=== PATIENT | male | born 1990 | race Hispanic/Latino ===

== ENCOUNTER 2021-10-11 17:11 | Emergency (ER) | payer SELFPAY ==
--- NOTE | ~2021-10-11 | XR_ITS ---
XR chest 1V portable DATE: 10/11/2021 18:14 INDICATION: Cough for one month. Shortness of breath, fever. TECHNIQUE: Portable upright AP chest on October 11, 2021 at 1810 hours COMPARISON: None FINDINGS: Normal heart size. No hilar or mediastinal enlargement. No pulmonary infiltrate or consolid ation, pleural effusion or pulmonary vascular congestion or pneumothorax. IMPRESSION: No active cardiopulmonary disease Reviewed, dictated and finalized at location A.
[2021-10-11 17:38] VITALS: BP 126/78; PULSE 107; RESP 16; TEMP 37.4; O2SAT 99
[2021-10-11 17:55] VITALS: O2SAT 99
--- NOTE | 2021-10-11 18:06 | ED.URI ---
HPI - URI/Sore Throat General Chief Complaint: Upper Respiratory Infection Stated Complaint: body aches/cough Time Seen by Provider: 10/11/21 17:56 Source: patient Mode of arrival: ambulatory Limitations: no limitations History of Present Illness HPI Narrative: This is a 31-year-old male that presents to the emergency department for cold symptoms present over the last couple of weeks. Reports he had had a cough for the last couple of weeks. Yesterday he started to feel acutely worse. Reports fever, body aches and malaise. Reports he has intermittently seen some blood when he blows his nose. He is not COVID or influenza vaccinated. Denies chest pain or shortness of breath. Related Data Allergies Allergy/AdvReac Type Severity Reaction Status Date / Time No Known Allergies Allergy Verified 10/11/21 18:07 Review of Systems Review of Systems: CONSTITUTIONAL: Reports fever ENT: Reports rhinorrhea, congestion CARDIOVASCULAR: Denies chest pain RESPIRATORY: Reports cough. Denies dyspnea. All systems reviewed & are unremarkable except as noted in HPI and below PMFSH Past Medical History Medical History (Updated 10/11/21 @ 18:33 by Seda Preston PA-C) No active medical problems Social History Social History (Updated 10/11/21 @ 18:08 by Seda Preston PA-C) Substance use: never Exam Narrative: GENERAL: Well-appearing, well-nourished, and in no acute distress. HEAD: Normocephalic, atraumatic. EYES: EOMI. ENT: Nares clear, no rhinorrhea or epistaxis. Mucous membranes moist. Oropharynx without tonsillar hypertrophy exudate or other lesions. Bilateral TMs pearly young non-bulging NECK: Supple. No adenopathy or masses. CHEST: Clear to auscultation. No respiratory distress. No wheezes rales or rhonchi HEART: Regular rate and rhythm. No murmur heard. Normal peripheral pulses. EXTREMITIES: Normal range of motion. No edema. SKIN: Warm, dry, no rash. NEURO: No focal deficits. Alert and oriented x3. PSYCH: Normal mood and affect Course Vital Signs Vital signs: Vital Signs Temperature 99.3 F 10/11/21 17:38 Pulse Rate 107 H 10/11/21 17:38 Respiratory Rate 16 10/11/21 17:38 Blood Pressure 126/78 10/11/21 17:38 Pulse Oximetry 99 10/11/21 17:38 Temperature 99.3 F 10/11/21 17:38 Pulse Rate 107 H 10/11/21 17:38 Respiratory Rate 16 10/11/21 17:38 Blood Pressure 126/78 10/11/21 17:38 Pulse Oximetry 99 10/11/21 17:55 MDM - URI/Sore Throat MDM Narrative Medical decision making narrative: Patient presents to the emergency department for cold symptoms present over the last couple of weeks. He has a febrile and nontoxic-appearing. Mildly tachycardic upon arrival. This normalized without intervention. Oxygen saturation has remained normal on room air. Chest x-ray without acute cardiopulmonary abnormality. Influenza screen is negative. SARS-CoV-2 is pending. He was also reporting some intermittent nosebleeds. No signs or symptoms of bleeding at this time. Patient and family updated on case findings. He was instructed on continued care of viral infection. He is to follow-up with primary care doctor. He was given warnings to return to the ER Lab Data Attestation: I reviewed the patient's lab results. Labs: Lab Results 10/11/21 Range/Units 18:15 SARS-CoV-2 RNA (RT-PCR) Pending Influenza A Screen Negative Reference Range: Negative Influenza B Screen Negative Reference Range: Negative Imaging Data Radiologist's impression: ITS Impressions Chest X-Ray 10/11/21 18:17 IMPRESSION: No active cardiopulmonary disease Critical Care Time Critical Care Time Critical Care Time: No Discharge Plan Discharge Clinical Impression: Acute viral syndrome, Person under investigation for COVID-19 Patient Disposition: Home, Self-Care C
[2021-10-11] MEDS: ACETAMINOPHEN 500 MG TABLET 1000 MG PO (18:12)
[2021-10-11 18:48] VITALS: BP 149/83; PULSE 89; RESP 16; O2SAT 99
[2021-10-11 18:58] LABS: SARS-CoV-2 RNA PCR Negative
== END 2021-10-11 18:49 | disposition home or self-care (01) ==
LOC: ANHED 18:43
PROVIDERS: Physician Assistant; Emergency Provider Emergency Medicine; PCP Emergency Medicine
DX: B34.9 Viral infection, unspecified (principal); Z20.822 Contact with and (suspected) exposure to COVID-19
CPT/HCPCS: 71045; 87804; 99283; A9270; C9803; U0003; U0005

== ENCOUNTER 2022-02-18 22:48 | Emergency (ER) | payer SELFPAY ==
[2022-02-18 23:01] VITALS: BP 132/77; PULSE 76; RESP 18; TEMP 37; O2SAT 100
--- NOTE | 2022-02-19 02:33 | ED.EAR ---
HPI - Ear Problem General Chief complaint: Ear Stated complaint: ear Time Seen by Provider: 02/19/22 02:14 History of Present Illness HPI Narrative: Pt is a 31 y/o male, Sinhala speaking, presents to ED via POV with C/O left ear pain. All information is obtained with the use of gas line repairer via video call. Pt notes he began having left otalgia 5 days ago; for which he was evaluated and prescribed Ciprodex two days ago. He is using the drops as directed but reports the medication does not go into the ear canal and only runs out of the ear when he resumes an upright position. He denies associated fevers or chills. He is taking Ibuprofen for pain with minimal relief. He denies any additional associated symptoms or modifying factors. Related Data Home Medications Medication Instructions Recorded Confirmed ciprofloxacin 0.3 %-dexamethasone 4 drp EACH EAR Q12H 02/18/22 02/18/22 0.1 % ear drops,suspension Allergies Allergy/AdvReac Type Severity Reaction Status Date / Time No Known Allergies Allergy Verified 02/19/22 02:38 Review of Systems Review of Systems: refer to HPI ENT: Comments: refer to [facility] Past Medical History Medical History (Updated 10/12/21 @ 00:00 by Lorin Fairbanks) No active medical problems Social History Social History (Updated 10/11/21 @ 18:08 by Seda Preston PA-C) Substance use: never Exam Const: General: cooperative, healthy appearing, no acute distress, well developed, alert, awake and Physically active Nutritional Appearance: average body habitus Orientation/consciousness: oriented to person, oriented to place, oriented to time and patient oriented x3 Limitations: language barrier (dyer and washer services are utilized throughout exam) HENMT: Head: normal to inspection, No palpable skull fracture present, normocephalic and atraumatic Ears: hearing grossly normal bilaterally, mastoids normal, no periauricular adenopathy and Abnormal EAC present erythema, edema, EAC tenderness and otic discharge (left ear only) General nose exam: Normal external nose present Mouth: Yes Normal oral and palatal mucosa present Other: no mastoid TTP, no fluctuance Eyes: General: appearance normal, both eyes and all related structures Eyelids: eyelids normal Conjunctivae: conjunctivae normal Sclera: sclerae normal Neck: Neck: normal visual inspection Thyroid: thyroid normal Lymphatic: no lymphadenopathy noted and no lymphedema noted Resp: Effort & Inspection: normal respiratory effort Auscultation: clear to auscultation bilaterally Percussion: percussion normal Cardio: Rate: regular rate Heart sounds: S1 normal heart sound present and S2 normal heart sound present Skin: General skin exam: normal color Neuro: Cranial nerves: Yes CN's II-XII intact bilaterally Gait exam (Neuro): Normal gait present Motor exam (neuro): 5/5 motor strength present throughout Extrem: General: normal to inspection Course Course Emergency Course: plan to provide Tramadol here for pain, Cipro PO, in addition to Ciprodex to continue at home with ENT FU this week if symptoms are not improving. Information is provided with dyer and washer Vital Signs Vital signs: Vital Signs Temperature 37.0 C 02/18/22 23:01 Pulse Rate 76 02/18/22 23:01 Respiratory Rate 18 02/18/22 23:01 Blood Pressure 132/77 02/18/22 23:01 Pulse Oximetry 100 02/18/22 23:01 Oxygen Delivery Room Air 02/18/22 23:01 Temperature 37.0 C 02/18/22 23:01 Pulse Rate 76 02/18/22 23:01 Respiratory Rate 18 02/18/22 23:01 Blood Pressure 132/77 02/18/22 23:01 Pulse Oximetry 100 02/18/22 23:01 Oxygen Delivery Room Air 02/18/22 23:01 Medical Decision Making Vital Signs Vital Signs: Vital Signs Temperature 37.0 C 02/18/22 23:01 Pulse Rate 76 02/18/22 23:01 Respiratory Rate 18 02/18/22 23:01 Blood Pressure 132/77 02/18/22 23:01 Pulse Oximetry 100 02/18/22 23:01 Oxygen Delivery R
[2022-02-19] MEDS: CIPROFLOXACIN 500 MG TAB PO (03:09)
[2022-02-19] MEDS: traMADol HCL (*CRX) 50 MG TABLET PO (03:10)
[2022-02-19] MEDS: KETOROLAC (*BKC) 60 MG/2 ML VIAL IM (03:11)
--- NOTE | 2022-02-19 03:37 | PC.NURSE ---
Pt had no complaints after medication administration. Pt continued and okay with d/c.
== END 2022-02-19 03:39 | disposition home or self-care (01) ==
PROVIDERS: Emergency Provider Nurse Practitioner Family
DX: H60.92 Unspecified otitis externa, left ear (principal)
CPT/HCPCS: 96372; 99283; A9270; J1885